=== PATIENT | female | born 1940 | race Caucasian/White ===

== ENCOUNTER → 2019-12-17 | Outpatient (CLI) | payer MEDICARE, BC ==
[~2019-12-17] MED LIST: ALBU8.5H8 IH; ASPI-496 PO; ATOR40TA78 PO; BUPR300T49 PO; CYCL1DRO EACHEYE; DICL100G25 TP; ESOM40CA PO; ESZO1TAB8 PO; GABA300C10 PO; HYDR-3237 PO; HYDR-3240 PO; HYDR12.517 PO; LISI-463 PO; LOSA50TA2 PO; MELO7.5T31 PO; OMEP-110 PO; ONDA-89 PO; SENN-177 PO; [UNRECOGNIZED DRUG - OTHER] OP
== END | disposition home or self-care (01) ==
LOC: CFH 13:53
PROVIDERS: ATTEND Internal Medicine Cardiovascular Disease
DX: I08.2 Rheumatic disorders of both aortic and tricuspid valves (principal); R55 Syncope and collapse; R06.02 Shortness of breath
CPT/HCPCS: 93306